=== PATIENT | female | born 1965 | race Two or more races ===

== ENCOUNTER 2018-11-20 16:24 | Emergency (ER) | payer MEDICAID ==
[~2018-11-20] VITALS: Ht 160 cm; Wt 66.2 kg
[2018-11-20 16:56] LABS: Basophils # (auto) 0 uL; Basophils % (auto) 0.4 % (0.0-2.0); Eosinophils # (auto) 0.1 uL; Eosinophils % (auto) 1.8 % (0.0-7.0); Hematocrit 42.6 % (36.0-46.0); Hemoglobin 14.3 g/dL (12.2-16.2); Lymphocytes # (auto) 2.4 uL; Lymphocytes % (auto) 38.7 % (10.0-50.0); Mean Corpuscular Hemoglobin 31.7 pg (28.0-32.0); Mean Corpuscular Hgb Conc. 33.6 g/dL (32.0-36.0); Mean Corpuscular Volume 94.3 fL (80.0-100.0); Monocytes # (auto) 0.4 uL; Neutrophils # (auto) 3.3 uL; Neutrophils % (auto) 52.1 % (37.0-80.0); Nucleated Red Blood Cells % 0.1 %; Platelet Count (auto) 391 10^3/uL (140-450); Red Blood Cells 4.51 10^6/uL (4.0-5.20); Red Cell Distribution Width 12.6 % (11.8-14.3); White Blood Cell 6.3 10^3/uL (4.4-10.8)
[2018-11-20 17:10] LABS: Alanine Aminotransferase 28 U/L (13-56); Albumin 4.4 g/dL (3.4-5.0); Anion Gap 8 (5-15); Aspartate Aminotransferase 20 U/L (15-37); BUN/Creatinine Ratio 21.7; Blood Urea Nitrogen 18 mg/dL (7-18); Calcium 9.2 mg/dL (8.5-10.1); Carbon Dioxide 26 mmol/L (21-32); Chloride 104 mmol/L (98-107); GFR African American > 60 mL/min; GFR Non-African American > 60 mL/min; Glucose 94 mg/dL (74-106); Potassium 4.2 mmol/L (3.5-5.1); Sodium 138 mmol/L (136-145)
[2018-11-20 17:13] LABS: Alkaline Phosphatase 90 U/L (45-117); Bilirubin, Total 0.4 mg/dL (0.2-1.0); Total Protein 8.5 g/dL (6.4-8.2)
[2018-11-20 17:13] LABS: Urine Bacteria NONE SEEN /hpf (None Seen); Urine Blood 3+ /uL (Negative); Urine Specific Gravity 1.017 (1.001-1.035); Urine WBC 5 /hpf (0 - 5)
[2018-11-20 20:46] VITALS: BP 146/90
== END 2018-11-20 21:58 | disposition home or self-care (01) ==
LOC: ER 16:32
DX: N92.0 Excessive and frequent menstruation with regular cycle (principal); N39.0 Urinary tract infection, site not specified; Z88.6 Allergy status to analgesic agent; Z88.8 Allergy status to other drugs, medicaments and biological substances; Z90.49 Acquired absence of other specified parts of digestive tract
CPT/HCPCS: 36415; 76856; 80053; 81001; 85025

== ENCOUNTER 2025-05-20 04:35 | Inpatient (IN) | payer MEDICAID, OTHER ==
[~2025-05-20] VITALS: Ht 152.4 cm; Wt 52.3 kg
[2025-05-20 04:45] VITALS: TEMP 97.7
--- NOTE | 2025-05-20 05:08 | PRN ---
Misceleneous Note Note Note RAPID MEDICAL ASSESSMENT NOTE: 60-year-old female who presents with syncopal episode and left ankle injury. Physical exam: General: Awake, alert and oriented. No acute distress. Skin: Skin in warm, dry and intact without rashes or lesions. HEENT: The head is normocephalic and atraumatic. Conjunctivae are clear without exudates or hemorrhage. Sclera is non-icteric. Neck: Normal range of motion. No JVD. Cardiac: Regular rate Respiratory: No signs of respiratory distress. No Stridor. Neurological: The patient is awake, alert and oriented to person, place, and time with normal speech. Speech is clear. There is no facial asymmetry. Psychiatric: Appropriate mood and affect. Good judgement and insight. Plan: Labs, imaging, EKG Sign out to oncoming provider pending full evaluation and re-assessment. GASTON ARRINGTON MD May 20, 2025 05:08
[2025-05-20 05:38] LABS: Hematocrit 38.9 % (36.0-46.0); Hemoglobin 13.3 g/dL (12.2-16.2); Mean Corpuscular Hemoglobin 31.9 pg (28.0-32.0); Mean Corpuscular Volume 93.3 fL (80.0-100.0); Nucleated Red Blood Cells % 0.1 %
[2025-05-20 05:40] LABS: Potassium 3.6 mmol/L (3.5-5.1); Sodium 140 mmol/L (136-145)
[2025-05-20 05:41] LABS: Anion Gap 9 (5-15); Calcium 9.6 mg/dL (8.7-10.4); Carbon Dioxide 23 mmol/L (20-31)
--- NOTE | 2025-05-20 05:44 | DVH ---
EXAM: CT HEAD WITHOUT CONTRAST INDICATION: SYNCOPE TECHNIQUE: CT of the head without intravenous contrast. Coronal and sagittal reformatted images are s ubmitted. Radiation Dose : 1. Head: CT Dose: CTDI volume is 58.63 mGy. Dose-length product is 824.26 mGy*cm The dose indicators for CT are the volume Computed Tomography (CT) Dose Index (CTDIvol) and the Dose Length Product (DLP), and are measured in units of mGy and mGy-cm, respectively. These indicators are not patient dose, but values generated from the CT scanner acquisition factors. The report includes radiation exposure data for exposures received during this examination. All CT scans at this medical facility are performed using dose modulation techniques as appropriate to a performed exam including the following: Automated exposure control was utilized; adjustment of the MA and/or KV according to patient size; and use of iterative reconstruction technique. COMPARISON: None FINDINGS: There is no evidence of acute intracranial hemorrhage, extra-axial collection, mass effect, midline s hift, herniation or hydrocephalus. The ventricles, sulci and cisterns are age appropriate. The oquendo-white differentiation is intact. There is hypodensity in the left basal ganglia. The mastoid air cells are clear. Mucosal thickening in the sphenoid sinus. No depressed calvarial fracture. The surrounding soft tissues are unremarkable. IMPRESSION: 1. Hypodensity in the left basal ganglia which could represent age-indeterminate lacunar infarct. MRI of the brain without intravenous contrast is recommended for further evaluation. 2. No acute intracranial hemorrhage or mass effect.
--- NOTE | 2025-05-20 05:45 | DVH ---
CLINICAL INDICATION: ANKLE INJURY TECHNIQUE: XY L ANKLE 3 VIEW Comparison: None FINDINGS/IMPRESSION: : Minimally displaced fracture of the base of the 5th metatarsal. Diffuse soft-tissue swelling around the ankle joint. Ankle mortise appears intact.
[2025-05-20 05:46] LABS: BUN/Creatinine Ratio 16.7 (10.0-20.0); Blood Urea Nitrogen 12 mg/dL (9-23); Glucose 89 mg/dL (74-106)
[2025-05-20 05:48] LABS: Chloride 108 mmol/L (98-107)
[2025-05-20] MEDS ORDERED: NITROGLYCERIN 0.4 MG SL TAB SL PRN (07:15)
--- NOTE | 2025-05-20 07:19 | DVHHP2 ---
History of Present Illness Reason for Visit: syncope History of Present Illness 60-year-old female past medical history hyperlipidemia vitamin-D gallbladder surgery chief of police complaint patient comes in according to her she was coming back for worse she put the trash in the trash can which she tripped and fell and landed on her knee she got up she went to the kitchen got something to eat and then when she went in the bathroom she kind of slid down to the floor. Patient did not know why she has slitting down at that time when she told her friend in his friend help bring her to the hospital for evaluation. Patient also complains of left ankle and left foot pain was the reason for coming to the ER for evaluation while in ED patient had labs completed CBC was unremarkable BNP was negative troponin was negative CT scan of the brain showed left basilar ganglia age indeterminate lacunar infarct x-ray of the ankle was negative for fracture but she did have a fifth toe this minimally displaced metatarsal fracture where she has a shoe in place. Patient denies any history of stroke encouraged admission for further workup for syncope and stroke workup. We will admit ask Neurology evaluation order MRI of the brain echocardiogram carotid ultrasound. We will admit to tele Past Medical History vit d deficiency, hld Past Surgical History gallbladder and c sec Past Social History The patient lives at home, denies smoking, alcohol or illicit drugs abuse. Review of Systems Constitutional: No: Fever, Chills, Sweats, Weakness, Malaise, Other Eyes: No: Pain, Vision change, Conjunctivae inflammation, Eyelid inflammation, Other, Redness ENT: No: Ear pain, Ear discharge, Nose pain, Nose discharge, Nose congestion, Mouth pain, Mouth swelling, Throat pain, Throat swelling, Other Respiratory: No: Cough, Dry, Shortness of breath, SOB with excertion, Wheezing, Hemoptysis, Pleuritic Pain, Sputum, Wheezing, Other Cardiovascular: No: Chest Pain, Palpitations, Orthopnea, Paroxysmal Noc. Dyspnea, Edema, Lt Headedness, Other Gastrointestinal: No: Nausea, Vomiting, Abdominal Pain, Diarrhea, Constipation, Melena, Hematochezia, Other Genitourinary: No Dysuria, No Frequency, No Incontinence, No Hematuria, No Retention, No Other Musculoskeletal: foot pain (left ); No: other, neck pain, shoulder pain, arm pain, back pain, hand pain, leg pain Skin: No: Rash, Lesions, Jaundice, Bruising, Other Neurological: No: Weakness, Numbness, Incoordination, Change in speech, Confusion, Seizures, Other Allergies: Coded Allergies: Aspirin (Verified Allergy, Unknown, 09/04/23) Ibuprofen (Verified Allergy, Unknown, 09/04/23) Exam Vital Signs Vital Signs Date Time Temp Pulse Resp B/P (MAP) Pulse Ox O2 Delivery O2 Flow Rate FiO2 05/20/25 06:11 Room Air* 0 21 05/20/25 06:11 70 16 138/82 (100) 98 05/20/25 04:45 97.7 97.7 General Appearance: Alert, Oriented X3, Cooperative, No acute distress HEENT: Atraumatic, PERRLA, EOMI, Mucous membr. moist/pink Respiratory: Clear to auscultation, Normal air movement Cardiovascular: Regular rate, Normal S1, Normal S2, No murmurs Abdominal: Normal bowel sounds, Soft, No tenderness, No hepatospenomegaly, No masses Extremities: No clubbing, No cyanosis, No edema, Normal pulses, Other (left foot 5th toe fracture) Skin: No rashes, No breakdown, No significant lesion Neuro: Normal gait, Normal speech, Strength at 5/5 X4 ext, Normal tone, Sensation intact, Cranial nerves 3-12 NL Psych/Mental Status: Mental status NL, Mood NL Labs/Xrays X-ray of the ankle left displaced fracture of the fifth metatarsal I reviewed labs, imaging CT scan abdomen pelvis, EKG and all diagnostic studies on this patient from ED records and the medical chart Labs Test 05/20/25 06:22 05/20/25 05:16 Range/Units Troponin I High Sensitivity 3 L </=34 ng/L White Blood Count 6.7 4.4-10.8 10^3/uL Red Blood Count 4.17 4.0-5.20 10^6/uL Hemoglobin 13.3 12.2-16.2 g/dL Hematocrit 38.9 36.0-46.0 % Mean Corpuscular Volume 93.3 80.0-100.0 fL Mean Corpuscular Hemoglobin 31.9 28.0-32.0 pg Mean Corpuscular Hemoglobin Concent 34.2 32.0-36.0 g/dL Red Cell Distribution Width 13.3 11.8-14.3 % Platelet Count 292 140-450 10^3/uL Mean Platelet Volume 7.5 6.9-10.8 fL Neutrophils (%) (Auto) 67.8 37.0-80.0 % Lymphocytes (%) (Auto) 22.3 10.0-50.0 % Monocytes (%) (Auto) 7.3 0.0-12.0 % Eosinophils (%) (Auto) 1.4 0.0-7.0 % Basophils (%) (Auto) 1.2 0.0-2.0 % Neutrophils # (Auto) 4.5 1.6-8.6 10 ^3/uL Lymphocytes # (Auto) 1.5 0.4-5.4 10 ^3/uL Monocytes # (Auto) 0.5 0-1.3 10 ^3/uL Eosinophils # (Auto) 0.1 0-0.8 10 ^3/uL Basophils # (Auto) 0.1 0-0.2 10 ^3/uL Nucleated Red Blood Cells 0.1 % Sodium Level 140 136-145 mmol/L Potassium Level 3.6 3.5-5.1 mmol/L Chloride Level 108 H 98-107 mmol/L Carbon Dioxide Level 23 20-31 mmol/L Anion Gap 9 5-15 Blood Urea Nitrogen 12 9-23 mg/dL Creatinine 0.72 0.550-1.02 mg/dL Glomerular Filtration Rate Calc 96 >90 mL/min BUN/Creatinine Ratio 16.7 10.0-20.0 Serum Glucose 89 74-106 mg/dL Calcium Level 9.6 8.7-10.4 mg/dL SEPSIS Sepsis Screen Date sepsis recognized/suspect: May 20, 2025 Time Sepsis recognized/suspect: 613 Recent Procedure: No On Antibiotic Therapy: No Respiratory Rate >20: No Heart Rate >90: No Temp<36 C (96.8 F) or >38.3 C: No SBP <90 or MAP <65 mmHG: No New Acute Mental Status Change: No Is the patient on CPAP, BIPAP,: No Physician Orders Electrocardigram (05/20/25 05:04) Head Without Contrast (05/20/25 05:04) Orthostatic Vital Signs (05/20/25 ) Electrocardigram (05/20/25 06:04) Electrocardigram (05/20/25 08:04) L Ankle 3 View (05/20/25 05:04) Post Op Shoe To Affected Area (05/20/25 06:43) Vital Signs Date Time Temp Pulse Resp B/P (MAP) Pulse Ox O2 Delivery O2 Flow Rate FiO2 05/20/25 06:11 Room Air* 0 21 05/20/25 06:11 70 16 138/82 (100) 98 05/20/25 05:15 75 05/20/25 04:45 97.7 78 16 119/74 (89) 99 97.7 Laboratory Tests Test 05/20/25 05:16 White Blood Count 6.7 10^3/uL (4.4-10.8) Assessment/Plan Assessment/Plan Acute syncopal episode likely from stroke CT the brain found age indeterminate lacunar infarct ordered mri brain fu results ordered echocardiogram ordered Doppler Orthostatic vital signs IV fluids Fall precautions PT eval and treat fu trop fu ekg trop x3 negative ekg no arrhythmia ordered neurology consult follow up recs ordered asa atorvastatin cpk, rpr, tsh, follow up results acute left minally displaced 5th MTP found on imaging fracture shoe ordered norco prn pain fen/ppx diet no gi ppx since no hx of gerds/gi bleed scd plan admit to tele for neurology consult for syncope and cards workup Plan discussed with: Patient Date of Service: May 20, 2025 Billing Provider: DONITA HA DNP Common Visit Codes: [id number] INP/OBS CARE (HIGH) DONITA HA DNP May 20, 2025 07:19
[2025-05-20 08:01] LABS: Urine Protein, UAD Negative (Negative)
[2025-05-20 08:23] LABS: Magnesium 1.9 mg/dL (1.6-2.6)
--- NOTE | 2025-05-20 08:56 | DVH ---
CLINICAL HISTORY: Evaluate for vascular occlusion. TECHNIQUE: Duplex carotid Doppler ultrasound was performed. Grayscale, color-flow, and spectral wavef orm analysis was performed. COMPARISON: None FINDINGS: There is minimal plaque seen on oquendo scale imaging in the carotid bifurcations and proximal ICAs bila terally. There is no significant elevation of the peak systolic velocity. There is no significant spectral broadening. Color doppler examination demonstrates no evidence for significant turbulent fl ow. Findings correspond to the less than 50% stenosis category. Antegrade flow is noted in both loreta tebral arteries. EXAMINATION DATA: RIGHT PSV (cm/s) EDV (cm/s) ICA 91 30 CCA 70 ECA 62 ICA/CCA Ratio: 1.3 Vertebral Flow: antegrade LEFT PSV (cm/s) EDV (cm/s) ICA 91 30 CCA 75 ECA 66 ICA/CCA Ratio: 1.2 Vertebral Flow: antegrade IMPRESSION: 1. Findings described above are consistent with the less than 50% carotid stenosis category. 2. Antegrade flow of the vertebral arteries bilaterally.
--- NOTE | 2025-05-20 09:10 | DVHINCON2 ---
Date of service: May 20, 2025 Referring Physician Yazan Reason for Consultation Evaluate for acute syncope appears to have ischemic stroke History of Present Illness Ms. Seay is a 60 years old right-handed female otherwise healthy, the patient came to the hospital with a chief complaint of falling. At this time, she is alert and fully oriented, she provided the following history Around 3:00 a.m. on 05/20/2025, after using bathroom, when she was washing her hands, she had feeling of hungry, hot, and next memory was waking up on the floor with clear sensorium, she believes she lost memory or consciousness for no more than 2-3 seconds. This event was not associated with dizziness, nausea, vision change, chest pain, headache. She has never had similar problem before, she has no history of stroke or seizure disorder He denies focal weakness numbness but her CT brain scan showed evidence suggestive of stroke with age indeterminate stroke She had fall in the evening on 05/19/2025 and hurt her left ankle Urinalysis, 05/20/2025: Unremarkable CBC, 05/20/2025: Unremarkable BMP, 05/20/2025: Unremarkable TSH, 05/20/2025: 3.15 Carotid Doppler, 05/25/2025: 1. Findings described above are consistent with the less than 50% carotid stenosis category. 2. Antegrade flow of the vertebral arteries bilaterally CT head, 05/20/2025: 1. Hypodensity in the left basal ganglia which could represent age-indeterminate lacunar infarct. MRI of the brain without intravenous contrast is recommended for further evaluation. 2. No acute intracranial hemorrhage or mass effect Past Medical History No major medical history Past Surgical History Cholecystectomy, Family History Coronary artery disease, heart attack Social History She denies a history of tobacco smoking, drug, alcohol abuse Allergies: Coded Allergies: Aspirin (Verified Allergy, Unknown, 09/04/23) Ibuprofen (Verified Allergy, Unknown, 09/04/23) Current Medications Current Medications Medications (Trade) Dose Ordered Sig/Belen Route PRN Reason Start Time Stop Time Status Last Admin Atorvastatin Calcium (Lipitor) 80 mg HS PO 05/20/25 22:00 UNV Nitroglycerin (Ntrostat Sublingual) 0.4 mg Q5MINP PRN SL FOR CHEST PAIN 05/20/25 07:15 UNV Review of Systems As above, the other systems are negative Vital Signs Vital Signs Date Time Temp Pulse Resp B/P (MAP) Pulse Ox O2 Delivery O2 Flow Rate FiO2 05/20/25 08:08 73 16 136/92 (107) 100 05/20/25 06:11 Room Air* 0 21 05/20/25 04:45 97.7 97.7 Physical Exam GENERAL EXAM: General: the patient is well developed and nourished. No acute distress. HEENT: Normocephalic, neck is supple, no carotid bruits. No mass RESPIRATORY: Normal respiratory effort with symmetrical lung expansion. Lungs clear to auscultation. CARDIOVASCULAR: Regular rate and rhythm with no murmurs. S1, S2. ABDOMEN: Soft, nontender, normal bowel sound NEUROLOGICAL: MENTAL STATUS: Awake and alert. Oriented to person, place, time and general circumstances. Able to give personal history. SPEECH, LANGUAGE, HIGHER CORTICAL FUNCTION: no aphasia or dysathria. CRANIAL NERVES: #2: Intact visual meraz to confrontation. The optic discs were sharp. #3,4,6: Pupils are equal, round and reactive. EOMs full and conjugate. #5: Facial sensation intact in all three divisions bilaterally. Mandibular strength intact. #7: Facial muscles symmetrical and strength intact. #8: Hearing grossly normal to voice. #9,10: Uvula and soft palate rise in the midline. Swallow and voice are normal. #11: Trapezius and sternomastoid strength intact bilaterally. #12: Tongue midline. No fasciculations or atrophy. SENSATION: Sensation to touch and pinprick is normal. MOTOR: Normal tone in the upper and lower extremity. Normal muscle bulk. No fasciculations. No abnormal movements or posturing. Muscle strength of the major groups in the upper extremities is 5/5. Muscle strength of the major groups in the lower extremities is 5/5. REFLEXES: Deep tendon reflexes normal and symmetrical. No pathological reflexes. CEREBELLAR/COORDINATION: Finger to nose and heel to wilson are normal bilaterally. GAIT/STATION: deferred. Labs/Diagnostic Data Labs Test 05/20/25 07:04 05/20/25 06:22 05/20/25 05:16 Range/Units Urine Color Colorless Yellow Urine Clarity Clear Clear Urine pH 6.0 5.0-9.0 Urine Specific [place] 1.004 1.001-1.035 Urine Protein Negative Negative Urine Ketones Negative Negative Urine Blood Negative Negative /uL Urine Nitrite Negative Negative Urine Bilirubin Negative Negative Urine Urobilinogen Normal Negative mg/dL Urine Leukocyte Esterase Negative Negative /uL Urine RBC <1 0 - 4 /hpf Urine Microscopic WBC 1 0-5 /HPF Urine Squamous Epithelial Cells Few <5 /hpf Urine Bacteria None seen None Seen /hpf Urine Glucose Normal Normal mg/dL Troponin I High Sensitivity 3 L </=34 ng/L White Blood Count 6.7 4.4-10.8 10^3/uL Red Blood Count 4.17 4.0-5.20 10^6/uL Hemoglobin 13.3 12.2-16.2 g/dL Hematocrit 38.9 36.0-46.0 % Mean Corpuscular Volume 93.3 80.0-100.0 fL Mean Corpuscular Hemoglobin 31.9 28.0-32.0 pg Mean Corpuscular Hemoglobin Concent 34.2 32.0-36.0 g/dL Red Cell Distribution Width 13.3 11.8-14.3 % Platelet Count 292 140-450 10^3/uL Mean Platelet Volume 7.5 6.9-10.8 fL Neutrophils (%) (Auto) 67.8 37.0-80.0 % Lymphocytes (%) (Auto) 22.3 10.0-50.0 % Monocytes (%) (Auto) 7.3 0.0-12.0 % Eosinophils (%) (Auto) 1.4 0.0-7.0 % Basophils (%) (Auto) 1.2 0.0-2.0 % Neutrophils # (Auto) 4.5 1.6-8.6 10 ^3/uL Lymphocytes # (Auto) 1.5 0.4-5.4 10 ^3/uL Monocytes # (Auto) 0.5 0-1.3 10 ^3/uL Eosinophils # (Auto) 0.1 0-0.8 10 ^3/uL Basophils # (Auto) 0.1 0-0.2 10 ^3/uL Nucleated Red Blood Cells 0.1 % Sodium Level 140 136-145 mmol/L Potassium Level 3.6 3.5-5.1 mmol/L Chloride Level 108 H 98-107 mmol/L Carbon Dioxide Level 23 20-31 mmol/L Anion Gap 9 5-15 Blood Urea Nitrogen 12 9-23 mg/dL Creatinine 0.72 0.550-1.02 mg/dL Glomerular Filtration Rate Calc 96 >90 mL/min BUN/Creatinine Ratio 16.7 10.0-20.0 Serum Glucose 89 74-106 mg/dL Calcium Level 9.6 8.7-10.4 mg/dL Phosphorus Level 2.8 2.4-5.1 mg/dL Magnesium Level 1.9 1.6-2.6 mg/dL Thyroid Stimulating Hormone (TSH) 3.15 0.55-4.78 uIU/mL Assessment Falling with brief loss of consciousness on 05/20/2025 Syncope TIA/stroke Partial complex seizure Plan/Recommendation Monitoring Supportive treatment Telemetry EEG MR reports Echocardiogram Syncopal precautions discussed More recommendation per clinical course Plan discussed with: Patient, Other ARNOLD PAINTER MD May 20, 2025 09:10
[2025-05-20 09:15] VITALS: PULSE 90; RESP 22; O2SAT 99
--- NOTE | 2025-05-20 10:15 | DVH ---
EXAMINATION: MRI BRAIN HEAD WO CONTRAST INDICATION: eval for ischemic stroke in setting of acute syncope COMPARISON: CT scan of the head performed earlier same date. TECHNIQUE: Multiplanar, multisequence magnetic resonance imaging of the brain was performed without the use of i ntravenous contrast. FINDINGS: No evidence of acute infarct. No intracranial hemorrhage. No mass effect. There is periventricular/deep white matter T2/FLAIR hyperintensity is nonspecific, but most commonly associated with chronic microvascular disease. The ventricles and sulci are normal in size for age. Clear basal cisterns. Flow voids in the major intracranial vessels are maintained. No abnormality of the orbits. Paranasal sinuses and mastoid air cells are clear. No abnormality of the visualized osseous structures and extracranial soft tissues. IMPRESSION: 1. No acute infarct, intracranial hemorrhage, mass effect, or hydrocephalus. 2. Subcortical and periventricular white matter disease, nonspecific but most likely related to seque lae of chronic microvascular ischemic changes although other etiologies are not excluded.
[2025-05-20 13:00] VITALS: BP 123/74; PULSE 80; RESP 22; O2SAT 97
--- NOTE | 2025-05-20 19:04 | ECG ---
[facility] Test Date: 2025-05-20 Test Time: 05:13:45 Pat Name: RODGER FARIAS Department: ED Room: [address] [place] [address] Gender: F Site Surveyor: JOSE A : 1965 Requested By: GASTON ARRINGTON Order Number: [id number] Reading MD: Beny Sequeira Measurements Intervals [place] Rate: 75 P: 69 ND: 189 QRS: 57 QRSD: 82 T: 37 QT: 384 QTc: 429 Interpretive Statements Sinus rhythm Low voltage, precordial leads Abnormal R-wave progression, early transition Electronically Signed On 05-26-2025 22:03:53 PDT by Beny Sequeira Please click the below link to view image of tracing.
[2025-05-20] MEDS ORDERED: ATORVASTATIN 20 MG TAB PO SCH (22:00)
--- NOTE | 2025-05-21 01:15 | DVHSR ---
APPROVED REPORT EXAM: Two-dimensional and M-mode echocardiogram with Doppler and color Doppler. Blood Pressure: 138/82 mmHg INDICATION eval for cardiac function and ef RISK FACTORS Height: 5'0, Weight: 115 DIMENSIONS LVDd4.1 (3.8-5.7cm)LA (2D)2.5 (1.9-4.0cm)Aortic Root2.7 (2.0-3.7cm) LVDs3.1 (2.5-4.0cm)LA (MM) (1.9-4.0cm)Aortic Cusp Exc1.4 (1.5-2.0cm) EF (%) 55.0 (55-70%)Rt. Atrium3.2 (1.9-4.0cm)Asc. Aorta cm IVSd0.9 (0.7-1.1cm)RV (D) (1.8-2.4cm) PWd0.8 (0.7-1.1cm) Mitral Valve MitralMitral Stenosis E wave0.60m/sMV Mean GR.mmHg A wave0.93m/sMV Peak GR.mmHg E/A ratio0.62D MVAcm2 DECEL [id number] 1/2 [place] Aortic Valve Aortic ValveAortic Stenosis V10.88m/[place] Mean GR.2mmHg V21.09m/[place] Peak GR.5mmHg LVOT Diameter1.8 (1.8-2.4cm)Doppler AVA2.05cm2 Pulmonic Valve V20.74m/s Tricuspid Valve TR Velocity2.16m/s [id number] Other Information Quality : Technically LimitedRhythm : Technically limited study due to patient position.body habitus. Conclusion LV EF IS 65% AND IS NORMAL NORMAL VALVES NO EFFUSION NORMAL RV FUNCTION
== END 2025-05-20 16:31 | disposition left against medical advice (07) | DRG 47 ==
LOC: ER 04:35 → OVERFLOW 07:15
PROVIDERS: ADMIT Hospitalist; ATTEND Hospitalist
DX: G45.9 Transient cerebral ischemic attack, unspecified (principal); G40.209 Localization-related (focal) (partial) symptomatic epilepsy and epileptic syndromes with complex partial seizures, not intractable, without status epilepticus; Z53.29 Procedure and treatment not carried out because of patient's decision for other reasons; E78.5 Hyperlipidemia, unspecified; Z88.6 Allergy status to analgesic agent; Z82.49 Family history of ischemic heart disease and other diseases of the circulatory system; S92.352A Displaced fracture of fifth metatarsal bone, left foot, initial encounter for closed fracture
CPT/HCPCS: 36415; 70450; 70551; 73610; 80048; 81001; 83735; 84100; 84443; 84484; 85025; 93005; 93306; 93886; 97163; G0378